=== PATIENT | female | born 1970 | race Caucasian/White ===

== ENCOUNTER 2020-03-24 10:06 | Emergency (ER) | payer BC, SELFPAY ==
[2020-03-24 10:13] VITALS: BP 122/75; PULSE 89; RESP 19; TEMP 36.6; O2SAT 97
--- NOTE | 2020-03-24 10:29 | ED.EYEPROB ---
HPI - Eye Problem General Chief complaint: Eye Problems Stated complaint: poss object in eye Time Seen by Provider: 03/24/20 10:23 Source: patient and RN notes reviewed Mode of arrival: ambulatory Limitations: no limitations History of Present Illness HPI Narrative: Patient presents today complaining of pain, redness, and swelling to the left lower eyelid since yesterday afternoon, significantly worsened when she woke up this morning. Denies vision changes. Reports some crusting of the eyelashes this morning. Currently rates her pain 5/10, which increases with blinking. No foreign body sensation. chief complaint: eye redness Related Data Allergies Allergy/AdvReac Type Severity Reaction Status Date / Time No Known Allergies Allergy Unverified 04/25/18 10:23 Review of Systems Review of Systems: Narrative: CONSTITUTIONAL: Denies body aches, fever, chills, or sweats. EYES: Denies visual changes, redness, or discharge. Redness and swelling to the left lower eyelid ENT: Denies rhinorrhea, congestion, sore throat, or otalgia. CARDIOVASCULAR: Denies chest pain, palpitations, or edema. RESPIRATORY: Denies cough or dyspnea. GASTROINTESTINAL: Denies abdominal pain, nausea, vomiting, or diarrhea. GENITOURINARY: Denies dysuria or hematuria. SKIN: Denies rash, itching, or wounds. MUSCULOSKELETAL: Denies back pain, joint pain, or myalgia. NEUROLOGIC: Denies headache, numbness, tingling, or weakness. PSYCH: Denies depression or anxiety. PMFSH Comments At time of signature, I have reviewed and agree with nursing past medical, surgical, social and family history unless otherwise noted. Please see nursing chart for further information. There is no relevant family history pertinent to the presenting complaint Exam Narrative: Exam Narrative: GENERAL: Well-appearing, well-nourished, and in no acute distress. HEAD: Normocephalic, atraumatic. EYES: EOMI. PERRL. Conjunctivae normal.Left eye: Obvious stye with mild erythema and edema to medial lower eyelid. No drainage. Right eye normal. Lashes normal. ENT: Mucous membranes pink and moist. NECK: Normal AROM. Supple. No lymphadenopathy. CHEST: No respiratory distress. EXTREMITIES: Normal range of motion. No edema. SKIN: Warm, dry, no rash. Capillary refill normal. Normal skin turgor. NEURO: No focal deficits. Alert and oriented x3. Gait steady. PSYCH: Normal affect. No signs of depression or anxiety. Course Vital Signs Vital signs: Vital Signs Temperature 97.8 F 03/24/20 10:13 Pulse Rate 89 03/24/20 10:13 Respiratory Rate 19 03/24/20 10:13 Blood Pressure 122/75 03/24/20 10:13 Pulse Oximetry 97 03/24/20 10:13 Temperature 97.8 F 03/24/20 10:13 Pulse Rate 89 03/24/20 10:13 Respiratory Rate 19 03/24/20 10:13 Blood Pressure 122/75 03/24/20 10:13 Pulse Oximetry 97 03/24/20 10:13 Reviewed. Pt has been instructed to follow up with her PCP regarding her elevated blood pressure today. MDM - Eye Problem Differential Diagnosis Differential diagnosis: Likely conjunctivitis, periorbital cellulitis and other (Stye, foreign body) Critical Care Time Critical Care Time Critical Care Time: No Discharge Plan Discharge Clinical Impression: Hordeolum externum left lower eyelid Patient Disposition: Home, Self-Care Condition: Stable Instructions: Curtis (ED) Additional Instructions: Please use eyedrops as directed. Apply warm compresses frequently. Follow-up with your PCP or an eye doctor in 3 to 4 days if symptoms are not improving. Take Tylenol or ibuprofen at home for pain. Your blood pressure was elevated above 120/80 today at Urgent Care. This puts you above the threshold for follow up. Please schedule a followup visit with your personal physician as soon as possible, for further evaluation and treatment. Even blood pressure exceeding 120/80 may indicate pre-hypertension. Patient Language: Andorran Prescriptions: New
== END 2020-03-24 10:46 | disposition home or self-care (01) ==
PROVIDERS: Emergency Provider Nurse Practitioner
DX: H00.015 Hordeolum externum left lower eyelid (principal)
CPT/HCPCS: 99213; G0463

== ENCOUNTER 2021-09-20 14:34 | Emergency (ER) | payer BC, SELFPAY ==
[2021-09-20 14:50] VITALS: BP 123/78; PULSE 84; RESP 14; TEMP 36.9; O2SAT 100
--- NOTE | 2021-09-20 15:51 | ED.URI ---
HPI - URI/Sore Throat General Chief Complaint: Upper Respiratory Infection Stated Complaint: Sinus Pain Time Seen by Provider: 09/20/21 16:00 Source: patient and RN notes reviewed Mode of arrival: ambulatory Limitations: no limitations History of Present Illness HPI Narrative: Chasity is a 51-year-old female patient who ambulated into the [facility] the [facility]. Patient states she has had sinus pain and pressure since Wednesday. Patient states she is use Motrin Tylenol and Benadryl. Patient states she has been using Flonase the last 3 days. Patient states her sinus headache is a 6 out of 10. Patient states she had a sinus infection back in March was treated with Augmentin. Patient states she had symptoms on Wednesday and Wednesday; states she was fine on Wednesday had a fever and nasal congestion , Wednesday, and Wednesday. Related Data Allergies Allergy/AdvReac Type Severity Reaction Status Date / Time No Known Allergies Allergy Unverified 04/25/18 10:23 Review of Systems Review of Systems: CONSTITUTIONAL: Denies body aches, + fever, denies chills, or sweats. EYES: Denies visual changes, redness, or discharge. ENT: + rhinorrhea,+ congestion, Denies sore throat, or otalgia. CARDIOVASCULAR: Denies chest pain, palpitations, or edema. RESPIRATORY: Denies cough or dyspnea. GASTROINTESTINAL: Denies abdominal pain, + nausea, denies vomiting, or diarrhea. GENITOURINARY: Denies dysuria or hematuria. SKIN: Denies rash, itching, or wounds. MUSCULOSKELETAL: Denies back pain, joint pain, or myalgia. NEUROLOGIC: Denies headache, numbness, tingling, or weakness. PSYCH: Denies depression or anxiety. All systems reviewed & are unremarkable except as noted in HPI and below PMFSH Comments At time of signature, I have reviewed and agree with nursing past medical, surgical, social and family history unless otherwise noted. Please see nursing chart for further information. There is no relevant family history pertinent to the presenting complaint Exam Narrative: GENERAL: Well-appearing, well-nourished, and in no acute distress. HEAD: Normocephalic, atraumatic. EYES: EOMI. No redness or drainage. Conjunctivae normal. ENT: Mucous membranes pink and moist. Nares erythemic,clear rhinorrhea. TMs dull, with moderate fluid bilaterally. Throat erythemic with clear post nasal drainage. NECK: Normal AROM. Supple. No lymphadenopathy. CHEST: No respiratory distress. Clear to auscultation. HEART: Regular rate and rhythm. No murmur appreciated. Normal peripheral pulses. ABDOMEN: Soft, nontender, nondistended, normal active bowel sounds. MUSCULOSKELETAL: No bony tenderness. EXTREMITIES: Normal range of motion. No edema. SKIN: Warm, dry, no rash. Capillary refill normal. Normal skin turgor. NEURO: No focal deficits. Alert and oriented x3. Gait steady. PSYCH: Normal affect. No signs of depression or anxiety. Course Vital Signs Vital signs: Vital Signs Temperature 36.9 C 09/20/21 14:50 Pulse Rate 84 09/20/21 14:50 Respiratory Rate 14 09/20/21 14:50 Blood Pressure 123/78 09/20/21 14:50 Pulse Oximetry 100 09/20/21 14:50 Temperature 36.9 C 09/20/21 14:50 Pulse Rate 84 09/20/21 14:50 Respiratory Rate 14 09/20/21 14:50 Blood Pressure 123/78 09/20/21 14:50 Pulse Oximetry 100 09/20/21 14:50 Reviewed MDM - URI/Sore Throat Differential Diagnosis Differential diagnosis: Likely upper respiratory infection, otitis media, viral infection and bronchitis Medical Records Attestation: I reviewed the patient's medical records. Critical Care Time Critical Care Time Critical Care Time: No Discharge Plan Discharge Clinical Impression: Sinusitis Qualifiers: Sinusitis location: frontal Chronicity: acute Recurrence: non-recurrent Qualified Code(s): J01.10 - Acute frontal sinusitis, unspecified Patient Disposition: Home, Self-Care Condition: Stable Instructions: Antibiotic Form, Sinusitis (ED) Additional Instruct
== END 2021-09-20 16:10 | disposition home or self-care (01) ==
PROVIDERS: Emergency Provider Nurse Practitioner Family
DX: J01.10 Acute frontal sinusitis, unspecified (principal)
CPT/HCPCS: 99213; G0463

== ENCOUNTER 2022-07-02 08:31 | Emergency (ER) | payer BC, SELFPAY ==
[2022-07-02 08:36] VITALS: BP 119/69; PULSE 57; RESP 16; TEMP 36.5; O2SAT 99
--- NOTE | 2022-07-02 08:41 | ED.SKABFB ---
HPI - Skin/Abscess/Foreign Bdy General Chief complaint: Skin/Abscess/Foreign Body Stated complaint: Rash Time Seen by Provider: 07/02/22 08:50 Source: patient, RN notes reviewed and old records reviewed Mode of arrival: ambulatory Limitations: no limitations History of Present Illness HPI narrative: 51-year-old female presents to [facility] with complaints of rash noted this morning on her back and some on her chest Patient states itching to rash areas, denies any shortness of breath or any difficulty whih her swallowing.Patient reports that yesterday she took a Bactrim for UTI symptoms but states has taken that medication before. Patient reports that she also unloaded wood yesterday an may been exposed to something on the wood complaint: rash Treatments prior to arrival: none Related Data Allergies Allergy/AdvReac Type Severity Reaction Status Date / Time No Known Allergies Allergy Unverified 04/25/18 10:23 Review of Systems Review of Systems: CONSTITUTIONAL: Denies fever, chills, or sweats. EYES: Denies visual changes, redness, or discharge. ENT: Denies rhinorrhea, congestion, sore throat, or otalgia. CARDIOVASCULAR: Denies chest pain, palpitations, or edema. RESPIRATORY: Denies cough or dyspnea. GASTROINTESTINAL: Denies abdominal pain, nausea, vomiting, or diarrhea. GENITOURINARY: Denies dysuria or hematuria. SKIN: Positive for rash to back and upper chest with itching. MUSCULOSKELETAL: Denies back pain, joint pain, or myalgia. NEUROLOGIC: Denies headache, numbness, or weakness. PSYCHIATRIC: Denies anxiety or depression. All systems reviewed & are unremarkable except as noted in HPI and below PMFSH Past Medical History Medical History (Updated 07/03/22 @ 06:37 by Maricruz Gonzales NP) Diverticulitis UTI (urinary tract infection) Surgical History Surgical History (Updated 07/03/22 @ 06:36 by Maricruz Gonzales NP) H/O arthroscopy of right knee X2 History of cholecystectomy History of hysterectomy Previous section Social History Social History (Updated 07/03/22 @ 06:36 by Maricruz Gonzales NP) Smoking status: Never smoker Alcohol intake: current Alcohol use details: social Substance use type: does not use Living arrangements: with family Gender identity (if verbalized by the patient): Female Comments At time of signature, agree with nursing past medical, surgical, social and family history. There is no relevant family history pertinent to the presenting complaint Exam Narrative: GENERAL: Well-appearing, well-nourished, and in no acute distress. HEAD: Normocephalic, atraumatic. EYES: PERRLA and EOMI. ENT: Nares clear, no rhinorrhea or epistaxis. Mucous membranes moist.TM's normal, throat pink with no lesions exudates or swollen tonsils. NECK: Supple.no lymphadenopathy CHEST: Clear to auscultation. No respiratory distress.SAO2 99% on room air HEART: Regular rate and rhythm. No murmur heard. Normal peripheral pulses. ABDOMEN: Soft, nontender, nondistended, normal active bowel sounds. EXTREMITIES: Normal range of motion. No edema. SKIN: Warm, dry, scattered irregular shaped raised red rash to back and upper chest region which is itchy. NEURO: No focal deficits. Alert and oriented x3. Course Course Level of Care: Express Care Visit Vital Signs Vital signs: Vital Signs Temperature 36.5 C 07/02/22 08:36 Pulse Rate 57 L 07/02/22 08:36 Respiratory Rate 16 07/02/22 08:36 Blood Pressure 119/69 07/02/22 08:36 Pulse Oximetry 99 07/02/22 08:36 Oxygen Delivery Room Air 07/02/22 08:36 Temperature 36.5 C 07/02/22 08:36 Pulse Rate 57 L 07/02/22 08:36 Respiratory Rate 16 07/02/22 08:36 Blood Pressure 119/69 07/02/22 08:36 Pulse Oximetry 99 07/02/22 08:36 Oxygen Delivery Room Air 07/02/22 08:36 MDM - Skin/Abscess/Foreign Bdy Differential Diagnosis Differential diagnosis: Likely abscess of skin or subcutaneous tissue, viral exanthem, urti
== END 2022-07-02 09:07 | disposition home or self-care (01) ==
PROVIDERS: Emergency Provider Registered Nurse
DX: L25.9 Unspecified contact dermatitis, unspecified cause (principal)
CPT/HCPCS: 99213; G0463